=== PATIENT | female | born 1955 | race Caucasian/White ===

== ENCOUNTER 2022-07-01 17:18 | Emergency (ER) | payer OTHER ==
[~2022-07-01] VITALS: Ht 170.2 cm; Wt 72.6 kg
--- NOTE | 2022-07-01 17:55 | NUR ---
To ER 19,"Diagnosed with COVID Tuesday from [facility] ?Covid pneumonia was given meds and Zpack but not feeling better", aaox3, breathing even and non labored, awaiting md orders
[2022-07-01] MEDS ORDERED: AMOX500T2 PO (19:00)
[2022-07-01] MEDS ORDERED: BENZ-13 PO (19:23)
--- NOTE | 2022-07-01 19:31 | NUR ---
Patient discharged to home in stable condition. Written and verbal after care instructions given. Patient verbalizes understanding of instruction. Pt ambulatory with a steady gait
[2022-07-01 19:32] VITALS: BP 118/58
== END 2022-07-01 19:32 | disposition home or self-care (01) ==
LOC: ER 17:32
DX: U07.1 COVID-19 (principal); J12.82 Pneumonia due to coronavirus disease 2019; I10 Essential (primary) hypertension
CPT/HCPCS: 71045-TC

== ENCOUNTER 2022-07-26 18:37 | Emergency (ER) | payer MEDICARE, OTHER ==
[~2022-07-26 18:37] MED LIST: AMOX500T2 PO; BENZ-13 PO
--- NOTE | 2022-07-26 18:42 | NUR ---
called for triage not in the waiting room.
--- NOTE | 2022-07-26 18:47 | NUR ---
called for triage not in the waiting room.
--- NOTE | 2022-07-26 18:54 | NUR ---
called for triage not in the waiting room.
[2022-07-27] MEDS ORDERED: OMEP40CA21 PO (13:17)
[2022-07-27] MEDS ORDERED: AMLO2.5T4 PO (13:17)
[2022-07-27] MEDS ORDERED: METO-357 PO (13:17)
[2022-07-27] MEDS ORDERED: BENZ-38 PO (13:17)
[2022-07-29] MEDS ORDERED: GUAI600T53 PO (11:16)
[2022-07-29] MEDS ORDERED: PRED20TA PO ×2 (11:16)
[2022-07-29] MEDS ORDERED: PRED5TAB PO (11:16)
[2022-07-29] MEDS ORDERED: PRED10TA PO (11:16)
== END 2022-07-26 18:55 | disposition home or self-care (01) ==
LOC: ER 18:40
DX: Z53.21 Procedure and treatment not carried out due to patient leaving prior to being seen by health care provider (principal)

== ENCOUNTER 2022-07-27 11:08 | Inpatient (IN) | payer MEDICARE, OTHER ==
[~2022-07-27] VITALS: Ht 167.6 cm; Wt 69.4 kg
--- NOTE | 2022-07-27 11:22 | NUR ---
Hx covid c/o cough, "I want to get tested for covid again". AMBULATORY, PLACED ON BED, AAOX4, BREATHING EVEN AND UNLABORED SATURATING AT 97%RA.
[2022-07-27] MEDS ORDERED: CEFEPIME 1 GM in IV D5W 50 ML IV ONE (13:00)
[2022-07-27] MEDS ORDERED: VANCOMYCIN 1 GM in IV D5W 250 ML IV ONE (13:00)
--- NOTE | 2022-07-27 13:09 | NUR ---
MOVE SHEET SUBMITTED.
--- NOTE | 2022-07-27 13:12 | NUR ---
BLOOD DRAWN AND SENT TO LAB
[2022-07-27] MEDS ORDERED: AMLO2.5T4 PO (13:17)
[2022-07-27] MEDS ORDERED: BENZ-38 PO (13:17)
[2022-07-27] MEDS ORDERED: OMEP40CA21 PO (13:17)
[2022-07-27] MEDS ORDERED: METO-357 PO (13:17)
--- NOTE | 2022-07-27 13:17 | NUR ---
COVID SWAB SENT TO LAB
[2022-07-27 13:22] LABS: BASOPHILS # (AUTO) 0.2 K/uL (0.0-0.2); EOSINOPHILS % (AUTO) 2.5 % (0.0-6.0); HEMATOCRIT 34 % (33-45); HEMOGLOBIN 10.9 g/dL (11.5-14.8); LYMPHOCYTES # (AUTO) 2.4 K/uL (0.8-4.8); LYMPHOCYTES % (AUTO) 20.4 % (20.0-44.0); MEAN CORPUSCULAR HGB CONC 32 g/dl (31.0-36.0); MEAN CORPUSCULAR VOLUME 87 fL (82-100); MONOCYTES # (AUTO) 1.1 K/uL (0.1-1.30); MONOCYTES % (AUTO) 9.9 % (2.0-12.0); NEUTROPHILS # (AUTO) 7.5 K/uL (1.8-8.9); NEUTROPHILS % (AUTO) 65.2 % (43.0-81.0); PLATELET COUNT (AUTO) 333 K/uL (150-450); RED BLOOD CELL COUNT(AUTO) 3.87 MIL/uL (4.0-5.2); WHITE BLOOD COUNT (AUTO) 11.6 K/uL (4.3-11.0)
[2022-07-27 13:33] LABS: CALCIUM, SERUM 8.8 mg/dL (8.5-10.1); CREATININE 1.4 mg/dL (0.6-1.3); POTASSIUM 4.5 mmol/L (3.5-5.1)
--- NOTE | 2022-07-27 18:39 | NUR ---
REPORT GIVEN TO DOMINICK ESPINOSA. PT AWAITING TRANSFER TO FLOOR.
[2022-07-27] MEDS ORDERED: methylPREDNISolone SOD SUCC 40 MG/ML VIAL IV ONE (19:00)
[2022-07-27] MEDS ORDERED: ONDANSETRON HCL/PF 4 MG/2 ML VIAL IVP PRN (19:00)
--- NOTE | 2022-07-27 19:35 | NUR ---
transferred to 107 under acls
--- NOTE | 2022-07-27 19:40 | NUR ---
RN INITIAL NOTE PT ARRIVED TO UNIT VIA GURNEY, PT ABLE TO AMBULATE TO BED WITH STEADY GAIT. PT ADMITTED FOR PNEUMONIA WITH SIGNIFICANT MEDICAL HISTORY OF COVID PNEUMONIA ON 06/18, HTN, UTI, AND ACID REFLUX. PT IS VACCINATED AGAINST COVID WITH MODERNA AND HAS RECEIVED 2 DOSES WITH NO BOOSTER; PT ALSO REPORTS SHE HAS RECEIVED A PNEUMONIA VACCINE. PT CURRENTLY ON RA WITH O2SAT OF 94%; PT ENDORSES FEELING SOB WITH NON-PRODUCTIVE COUGH, SORE THROAT, AND GENERALIZED BODY ACHES. PT IS A&O X4, CALM, COOPERATIVE. PT IS ATTACHED TO EXTERNAL MONITOR SR HR OF 80. IV ACCESS NOTED TO BE ON LAC 20G, INTACT AND PATENT, FLUSHES EASILY WITH NO RESISTANCE. NO SKIN ISSUES IDENTIFIED. BED IN LOWEST POSITION, CALL LIGHT WITHIN REACH, SIDE RAILS UP X2. WILL INITIATE PLAN OF CARE.
[2022-07-27 20:00] VITALS: BP 140/86
[2022-07-27] MEDS: ACETAMINOPHEN 325 MG TABLET PO PRN (20:09)
[2022-07-27] MEDS: IV NS 0.9% 1,000 ML IV PRN (20:10)
[2022-07-27] MEDS: ENOXAPARIN SODIUM 40 MG/0.4 ML DISP.SYRIN SQ SCH (20:10)
--- NOTE | 2022-07-27 20:10 | NUR ---
RN NOTE PT REPORTS OF A 3-4/10 PAIN ON HER SHOULDER BLADES, BACK, AND CHEST. PT ADMINISTERED TYLENOL 650 MG. WILL MONITOR FOR EFFECTIVENESS.
[2022-07-27] MEDS ORDERED: GUAIFENESIN/D-METHORPHAN HB 5 ML UDC PO PRN (21:00)
--- NOTE | 2022-07-27 21:00 | NUR ---
RN NOTE PT REPORTS OF HAVING A NON-PRODUCTIVE COUGH. GHANSHYAM ALFONSO CONTACTED AND ORDERED ROBITUSSIN. PT ADMINISTERED ROBITUSSIN. WILL MONITOR FOR EFFECTIVENESS.
[2022-07-28] VITALS: BP 126/88
[2022-07-28] MEDS: CALCIUM CARBONATE 500 MG TAB.CHEW PO SCH ×3 (02:03→16:13)
[2022-07-28] MEDS: IBUPROFEN 400 MG TABLET PO PRN ×2 (02:03→14:35)
--- NOTE | 2022-07-28 02:05 | NUR ---
RN NOTE PT REPORTS OF HAVING ACIDITY AND HOW HER PAIN INCREASED FROM A 4 TO A 7. ORDER OBTAINED FROM KADEN MOTRIN 400 MG Q6H PRN AND TUMS 500 MG BID PRN. ORDERS CARRIED OUT.
--- NOTE | 2022-07-28 02:34 | NUR ---
RN NOTE DUE TO PATIENT WALKING BACK AND FORTH TO RESTROOM, PT REPORTS THAT HER SOB GETS WORSE. CURRENT O2SAT IS 93%. PT PLACED ON NC AT 2L.
--- NOTE | 2022-07-28 03:00 | NUR ---
RN NOTE LAC 20G IV ACCESS PULLED OUT. NEW IV ACCESS ESTABLISHED ON LAC 20G, INTACT AND PATENT, FLUSHES EASILY WITH NO RESISTANCE.
[2022-07-28 04:00] VITALS: BP 118/74
[2022-07-28] MEDS: ACETAMINOPHEN 325 MG TABLET PO PRN (05:58)
--- NOTE | 2022-07-28 05:58 | NUR ---
RN NOTE PT COMPLAINS OF A 5/10 GENERALIZED BODY ACHE. PT ADMINISTERED TYLENOL 650 MG. WILL MONITOR FOR EFFECTIVENESS.
[2022-07-28 07:08] LABS: BASOPHILS % (AUTO) 0.4 % (0.0-2.0); HEMATOCRIT 31 % (33-45); HEMOGLOBIN 10.3 g/dL (11.5-14.8); LYMPHOCYTES # (AUTO) 0.9 K/uL (0.8-4.8); LYMPHOCYTES % (AUTO) 13.9 % (20.0-44.0); MEAN CORPUSCULAR HGB CONC 33 g/dl (31.0-36.0); MEAN CORPUSCULAR VOLUME 88 fL (82-100); MONOCYTES # (AUTO) 0.1 K/uL (0.1-1.30); MONOCYTES % (AUTO) 1.6 % (2.0-12.0); NEUTROPHILS # (AUTO) 5.7 K/uL (1.8-8.9); NEUTROPHILS % (AUTO) 84.1 % (43.0-81.0); PLATELET COUNT (AUTO) 308 K/uL (150-450); RED BLOOD CELL COUNT(AUTO) 3.51 MIL/uL (4.0-5.2); WHITE BLOOD COUNT (AUTO) 6.7 K/uL (4.3-11.0)
[2022-07-28 07:12] LABS: CALCIUM, SERUM 9.3 mg/dL (8.5-10.1); CREATININE 1.5 mg/dL (0.6-1.3); MAGNESIUM 2.2 mg/dL (1.8-2.4); PHOSPHORUS 3.7 mg/dL (2.5-4.9); POTASSIUM 4.9 mmol/L (3.5-5.1)
--- NOTE | 2022-07-28 07:27 | NUR ---
RESOURCE PROTECTION SPECIALIST CLOSING NOTE PT REMAINS IN BED, AWAKE, A&O X4, SLEPT INTERMITTENTLY THROUGHOUT THE NIGHT. PT PLACED ON 2L NC; PT REPORTS HER SOB IS STILL THE SAME WITH THE 2L NC; CONTINUES TO HAVE NON-PRODUCTIVE COUGH WITH SORE THROAT; O2SAT DURING THE NIGHT WAS 93%-94%. PT ATTACHED TO EXTERNAL MONITOR, SR THROUGHOUT THE WHOLE NIGHT WITH HR IN THE 70S. IV ACCESS ON LFA 20G, INTACT AND PATENT, FLUSHES EASILY WITH NO RESISTANCE; NS INFUSING AT 75 ML/HR. ALL DUE MEDS ADMINISTERED DURING THE NIGHT. WILL ENDORSE TO DAYSHIFT NURSE TO CONTINUE CARE.
--- NOTE | 2022-07-28 07:30 | NUR ---
RN OPENING NOTE PATIENT IS IN BED ASLEEP BUT EASILY AROUSABLE, ALERT ORIENTED X 4. WITH O2 VIA NASAL CANNULA AT 2L/MIN. SINUS RHYTHM ON SALES LEDGER CLERK,. DENIES PAIN, BREATHING UNLABORED AND NOT IN ANY FORM OF DISTRESS. LEFT FOREARM IV INTACT AND INFUSING WITH NS AT 75 ML/HR. ALL HOSPITAL SAFETY PRECAUTIONS IN PLACE. BED IS LOCKED IN LOWEST POSITION, 3 SIDE RAILS UP, CALL LIGHT WITHIN REACH. WILL CONTINUE TO MONITOR THROUGHOUT SHIFT.
[2022-07-28 08:00] VITALS: BP 137/58
[2022-07-28] MEDS ORDERED: PANTOPRAZOLE 40 MG VIAL IV SCH (09:00)
[2022-07-28] MEDS: GUAIFENESIN LA 600 MG TABLET.SA PO SCH ×2 (09:16→21:05)
[2022-07-28] MEDS: methylPREDNISolone SOD SUCC 40 MG/ML VIAL IV SCH (11:09)
[2022-07-28 12:00] VITALS: BP 128/63
[2022-07-28] MEDS: IPRATROPIUM NEB FS 0.5 MG/2.5 ML AMPUL.NEB NEB SCH ×2 (13:59→19:58)
[2022-07-28] MEDS: ALBUTEROL HALF STRENGTH 1.25 MG/3 ML VIAL.NEB NEB SCH ×2 (13:59→19:58)
[2022-07-28] MEDS: IV NS 0.9% 1,000 ML IV PRN (14:46)
[2022-07-28 16:00] VITALS: BP 131/65
--- NOTE | 2022-07-28 16:51 | NUR ---
RN NOTE URINE SAMPLE OBTAINED AND SENT TO LAB.
[2022-07-28] MEDS: ENOXAPARIN SODIUM 40 MG/0.4 ML DISP.SYRIN SQ SCH (18:26)
--- NOTE | 2022-07-28 18:46 | NUR ---
RN CLOSING NOTE PATIENT REMAINED STABLE THROUGHOUT SHIFT. TOLERATES OXYGEN VIA NASAL CANNULA AT 2L/MIN, SATTING AT 95%. DENIES PAIN, BREATHING UNLABORED AND NOT IN ANY FORM OF DISTRESS. LEFT FOREARM IV LINE REMAINS INTACT AND PATENT. ALL HOSPITAL SAFETY PRECAUTIONS KEPT IN PLACE. WILL ENDORSE TO CIGARETTE FILTER INSPECTOR NURSE FOR CONTINUITY OF CARE.
--- NOTE | 2022-07-28 19:30 | NUR ---
REPAIRER HELPER OPENING NOTE PATIENT IS IN BED AWAKE, A/O X 4. WITH O2 VIA NASAL CANNULA AT 2L/MIN. TOLERATING WELL, NO S/S OF ACUTE DISTRESS, TELE MONITOR READING . DENIES PAIN, BREATHING UNLABORED AND NOT IN ANY FORM OF DISTRESS. IV ACCESS LFA #20, RUNNING NS@75ML/HR, INTACT PATENT. ALL HOSPITAL SAFETY PRECAUTIONS IN PLACE. BED IS LOCKED IN LOWEST POSITION, 3 SIDE RAILS UP, CALL LIGHT WITHIN REACH. WILL CONTINUE TO MONITOR THROUGHOUT SHIFT
[2022-07-28 20:00] VITALS: BP 122/66
[2022-07-29] VITALS: BP 137/70
[2022-07-29] MEDS: IPRATROPIUM NEB FS 0.5 MG/2.5 ML AMPUL.NEB NEB SCH ×3 (00:39→13:35)
[2022-07-29] MEDS: ALBUTEROL HALF STRENGTH 1.25 MG/3 ML VIAL.NEB NEB SCH ×3 (00:39→13:35)
[2022-07-29 01:13] LABS: BILIRUBIN,URINE NEGATIVE (NEGATIVE); COLOR,URINE YELLOW (YELLOW); LEUKOCYTE ESTERASE ,URINE SMALL (NEGATIVE); NITRITE, URINE NEGATIVE (NEGATIVE); PROTEIN,URINE NEGATIVE (NEGATIVE); UGLUCOSE NEGATIVE (NEGATIVE); UROBILINOGEN,URINE 0.2 EU/dL (0.2)
[2022-07-29 01:33] LABS: BACTERIA,URINE Few /HPF (None Seen); SQUAMOUS EPITHELIAL CELL,UR Moderate /HPF (None Seen); WBC,URINE 0-2 /HPF (0-3)
[2022-07-29 04:00] VITALS: BP 137/63
--- NOTE | 2022-07-29 06:46 | NUR ---
RN CLOSING NOTE PT ASLEEP IN BED,TOLERATES OXYGEN VIA NASAL CANNULA AT 2L/MIN, SATTING AT 95%. DENIES PAIN, BREATHING UNLABORED AND NOT IN ANY FORM OF DISTRESS. LFA IV LINE REMAINS INTACT AND PATENT. ALL DUE MEDS GIVEN. PATIENT ABLE TO MAKE NEEDS KNOWN. ALL HOSPITAL SAFETY PRECAUTIONS KEPT IN PLACE. WILL ENDORSE TO LUMBER STACKER OPERATOR NURSE FOR CONTINUITY OF CARE.
[2022-07-29 07:03] LABS: CREATININE 1.1 mg/dL (0.6-1.3); MAGNESIUM 2.3 mg/dL (1.8-2.4); PHOSPHORUS 3.4 mg/dL (2.5-4.9); POTASSIUM 4.1 mmol/L (3.5-5.1)
[2022-07-29 07:11] LABS: BASOPHILS # (AUTO) 0.1 K/uL (0.0-0.2); BASOPHILS % (AUTO) 0.5 % (0.0-2.0); HEMATOCRIT 32 % (33-45); HEMOGLOBIN 10.2 g/dL (11.5-14.8); LYMPHOCYTES # (AUTO) 2.2 K/uL (0.8-4.8); LYMPHOCYTES % (AUTO) 15.9 % (20.0-44.0); MEAN CORPUSCULAR HGB CONC 32 g/dl (31.0-36.0); MEAN CORPUSCULAR VOLUME 88 fL (82-100); MONOCYTES # (AUTO) 1.1 K/uL (0.1-1.30); MONOCYTES % (AUTO) 7.9 % (2.0-12.0); NEUTROPHILS # (AUTO) 10.6 K/uL (1.8-8.9); NEUTROPHILS % (AUTO) 75.7 % (43.0-81.0); PLATELET COUNT (AUTO) 311 K/uL (150-450); RED BLOOD CELL COUNT(AUTO) 3.61 MIL/uL (4.0-5.2)
--- NOTE | 2022-07-29 07:30 | NUR ---
telecommunications officer opening note patient is alert and oriented x4.patient is currently on tele monitor on sinus rhytm.patient is on 2L nasal cannula 97%. patient skin intact and ambulatory.patient has left forearm 20 guage normal saline running at 75 ml/hr.all safety measures in place. call ligght with reach.bed locked at lowest position
[2022-07-29 08:00] VITALS: BP 149/73
--- NOTE | 2022-07-29 08:58 | NUR ---
patient removing tele monitor box. asked dr. grewal if patient can be removed from tele box sad okay to remove
[2022-07-29] MEDS ORDERED: PANTOPRAZOLE 40 MG TABLET.DR PO SCH (09:00)
[2022-07-29] MEDS: methylPREDNISolone SOD SUCC 40 MG/ML VIAL IV SCH (10:31)
[2022-07-29] MEDS: GUAIFENESIN LA 600 MG TABLET.SA PO SCH (10:31)
[2022-07-29] MEDS: CALCIUM CARBONATE 500 MG TAB.CHEW PO SCH (10:31)
--- NOTE | 2022-07-29 10:55 | NUR ---
ms rn note on ra saturation 94-95% Honey Waite rn dnp notified , no new order at this time
[2022-07-29] MEDS ORDERED: PRED20TA PO ×2 (11:16)
[2022-07-29] MEDS ORDERED: PRED5TAB PO (11:16)
[2022-07-29] MEDS ORDERED: GUAI600T53 PO (11:16)
[2022-07-29] MEDS ORDERED: PRED10TA PO (11:16)
[2022-07-29] MEDS: ACETAMINOPHEN 325 MG TABLET PO PRN (15:01)
--- NOTE | 2022-07-29 16:29 | NUR ---
patient discharged.stable vital signs.provided information on discharge and followup instructions, did patient belongings list. removed iv. patient verbalized understanding of discharge instructions
== END 2022-07-29 17:10 | disposition home or self-care (01) | DRG 196 ==
LOC: ER 11:13 → TELE1 19:26 → MEDSG1 07-29 08:42
PROVIDERS: ADMIT Nurse Practitioner Acute Care; ATTEND Nurse Practitioner Acute Care
DX: J84.10 Pulmonary fibrosis, unspecified (principal); N17.0 Acute kidney failure with tubular necrosis; E87.1 Hypo-osmolality and hyponatremia; I10 Essential (primary) hypertension; U09.9 Post COVID-19 condition, unspecified; Z20.822 Contact with and (suspected) exposure to COVID-19; Z79.899 Other long term (current) drug therapy; T38.0X5A Adverse effect of glucocorticoids and synthetic analogues, initial encounter; Y92.009 Unspecified place in unspecified non-institutional (private) residence as the place of occurrence of the external cause
CPT/HCPCS: 36415; 71045-TC; 71250-TC; 76770-TC; 80048-TC; 80061-TC; 81001; 82570-TC; 83735-TC; 84100-TC; 84300-TC; 85025-TC; 85652-TC; 86140-TC; 87081-TC; 87086-TC; 94799-TC; C9113; C9803; G0378; J0692; J1650; J2920; J3370; J7030; J7060

== ENCOUNTER 2024-01-20 17:29 | Emergency (ER) | payer BC, OTHER ==
[~2024-01-20] VITALS: Ht 170.2 cm; Wt 72.6 kg
[~2024-01-20 17:29] MED LIST changes: +AMLO2.5T4 PO; -AMOX500T2 PO; -BENZ-13 PO; +GUAI600T53 PO; +METO-357 PO; +OMEP40CA21 PO; +PRED10TA PO; +PRED20TA PO; +PRED5TAB PO
[2024-01-20 17:46] VITALS: TEMP 98.4
[2024-01-20 19:49] VITALS: BP 154/76; O2SAT 99
== END 2024-01-20 19:51 | disposition home or self-care (01) ==
LOC: ER 17:29
DX: S89.302A Unspecified physeal fracture of lower end of left fibula, initial encounter for closed fracture (principal); I10 Essential (primary) hypertension; K21.9 Gastro-esophageal reflux disease without esophagitis; Z86.16 Personal history of COVID-19; W01.0XXA Fall on same level from slipping, tripping and stumbling without subsequent striking against object, initial encounter; Y93.89 Activity, other specified; Y92.89 Other specified places as the place of occurrence of the external cause; Y99.8 Other external cause status
CPT/HCPCS: 73590-TC; 73610-TC

== ENCOUNTER 2024-06-19 14:23 | Emergency (ER) | payer OTHER, MEDICAID ==
[~2024-06-19] VITALS: Ht 170.2 cm; Wt 72.6 kg
[2024-06-19 14:48] VITALS: TEMP 98.6
[2024-06-19] MEDS ORDERED: diphenhydrAMINE HCL 50 MG/ML VIAL IV ONE (15:30)
[2024-06-19] MEDS ORDERED: diphenhydrAMINE HCL 25 MG CAPSULE ONE (15:40)
[2024-06-19] MEDS ORDERED: predniSONE 20 MG TABLET ONE (15:40)
[2024-06-19] MEDS ORDERED: FAMOTIDINE (20 MG) 20 MG TABLET ONE (15:41)
[2024-06-19] MEDS: diphenhydrAMINE HCL 25 MG CAPSULE PO ONE (15:45)
[2024-06-19] MEDS: predniSONE 10 MG TABLET PO ONE (15:45)
[2024-06-19] MEDS: FAMOTIDINE (20 MG) 20 MG TABLET PO ONE (15:45)
[2024-06-19] MEDS ORDERED: PRED20TA PO (16:14)
[2024-06-19] MEDS ORDERED: DIPH25CA83 PO (16:14)
[2024-06-19] MEDS ORDERED: FAMO20TA80 PO (16:14)
[2024-06-19 16:31] VITALS: BP 128/74; O2SAT 97
== END 2024-06-19 16:31 | disposition home or self-care (01) ==
LOC: ER 14:28
DX: L30.9 Dermatitis, unspecified (principal); I10 Essential (primary) hypertension; K21.9 Gastro-esophageal reflux disease without esophagitis; Z86.16 Personal history of COVID-19; Z86.79 Personal history of other diseases of the circulatory system; Z87.448 Personal history of other diseases of urinary system; Z87.42 Personal history of other diseases of the female genital tract
CPT/HCPCS: 99284; Q0163; J7512 ×2

== ENCOUNTER 2024-06-27 08:39 | Emergency (ER) | payer OTHER ==
[~2024-06-27] VITALS: Ht 170.2 cm; Wt 73.0 kg
[~2024-06-27 08:39] MED LIST changes: +DIPH25CA83 PO; +FAMO20TA80 PO
[2024-06-27] MEDS ORDERED: CEFD300C3 PO (09:59)
[2024-06-27] MEDS ORDERED: MUPI15CR TP (09:59)
[2024-06-27] MEDS ORDERED: SULF1TAB47 PO (09:59)
[2024-06-27] MEDS ORDERED: PRED20TA PO (09:59)
[2024-06-27 10:06] VITALS: BP 128/74; TEMP 98.5; O2SAT 100
== END 2024-06-27 10:06 | disposition home or self-care (01) ==
LOC: ER 08:47
DX: A46 Erysipelas (principal); L30.9 Dermatitis, unspecified; I10 Essential (primary) hypertension; K21.9 Gastro-esophageal reflux disease without esophagitis; Z79.52 Long term (current) use of systemic steroids; Z79.899 Other long term (current) drug therapy

== ENCOUNTER 2024-07-12 11:27 | Emergency (ER) | payer OTHER ==
[~2024-07-12] VITALS: Ht 170.2 cm; Wt 72.6 kg
[~2024-07-12 11:27] MED LIST changes: +CEFD300C3 PO; +MUPI15CR TP; +SULF1TAB47 PO
[2024-07-12 11:50] VITALS: BP 138/74; TEMP 98.1; O2SAT 96
[2024-07-12] MEDS ORDERED: predniSONE 20 MG TABLET ONE (12:26)
[2024-07-12] MEDS: predniSONE 20 MG TABLET PO ONE (12:28)
[2024-07-12] MEDS ORDERED: PRED20TA PO (12:41)
[2024-07-12] MEDS ORDERED: HYDR-4182 TP (12:41)
== END 2024-07-12 13:01 | disposition home or self-care (01) ==
LOC: ER 11:48
DX: L30.9 Dermatitis, unspecified (principal); I10 Essential (primary) hypertension; K21.9 Gastro-esophageal reflux disease without esophagitis; Z79.1 Long term (current) use of non-steroidal anti-inflammatories (NSAID); Z79.899 Other long term (current) drug therapy
CPT/HCPCS: 99283; J7512

== ENCOUNTER 2024-12-31 17:03 | Emergency (ER) | payer BC, OTHER ==
[~2024-12-31] VITALS: Ht 167.6 cm; Wt 74.8 kg
[~2024-12-31 17:03] MED LIST changes: +HYDR-4182 TP
[2024-12-31] MEDS ORDERED: HYDROCODONE/APAP 5/325MG TABLET ONE (17:53)
[2024-12-31] MEDS: HYDROCODONE/APAP 5/325MG TABLET PO ONE (17:56)
[2024-12-31] MEDS ORDERED: TRAM50TA2 PO (18:51)
[2024-12-31] MEDS ORDERED: KETOROLAC TROMETHAMINE INJ 30 MG/ML VIAL ONE (18:59)
[2024-12-31] MEDS: KETOROLAC TROMETHAMINE INJ 30 MG/ML VIAL IM ONE (19:02)
[2024-12-31 19:04] VITALS: BP 150/78; TEMP 98.5; O2SAT 98
== END 2024-12-31 19:05 | disposition home or self-care (01) ==
LOC: ER 17:06
DX: S20.212A Contusion of left front wall of thorax, initial encounter (principal); R42 Dizziness and giddiness; I10 Essential (primary) hypertension; K21.9 Gastro-esophageal reflux disease without esophagitis; Z79.52 Long term (current) use of systemic steroids; Z79.899 Other long term (current) drug therapy; Z86.16 Personal history of COVID-19; W19.XXXA Unspecified fall, initial encounter; Y92.098 Other place in other non-institutional residence as the place of occurrence of the external cause; Y93.89 Activity, other specified; Y99.8 Other external cause status
CPT/HCPCS: 99285; 71250; 96372; J1885